=== PATIENT | female | born 1990 | race Caucasian/White ===

== ENCOUNTER 2021-03-23 18:02 | Emergency (ER) | payer OTHER | END 2021-03-23 19:37 | disposition left against medical advice (07) | LOC: ER1 18:02 | DX: N61.1 Abscess of the breast and nipple (principal); Z86.19 Personal history of other infectious and parasitic diseases; F17.210 Nicotine dependence, cigarettes, uncomplicated; Z79.899 Other long term (current) drug therapy | CPT/HCPCS: 99282; Q9967 ==

== ENCOUNTER 2021-03-25 00:44 | Inpatient (IN) | payer OTHER ==
[~2021-03-25] VITALS: Ht 154.9 cm; Wt 45.4 kg
[2021-03-25 02:43] LABS: RED BLOOD COUNT 3.99 M/UL (4.00-5.10); WHITE BLOOD COUNT 8.2 K/UL (4.5-11.0)
[2021-03-25 03:03] LABS: BUN/CREATININE RATIO 25 (0-10)
[2021-03-26 07:40] LABS: HEMOGLOBIN 10.7 gm/dl (12.3-15.3); RED BLOOD COUNT 3.77 M/UL (4.00-5.10)
[2021-03-26 07:41] LABS: WHITE BLOOD COUNT 11.3 K/UL (4.5-11.0)
[2021-03-26 08:08] LABS: BUN/CREATININE RATIO 34 (0-10)
--- NOTE | 2021-03-26 16:50 | NUR ---
1040 WAS INFORMED BY CRISTIAN HARRIS, THAT BOYFRIEND OF VISITOR WAS SITTING AT TABLE WITH TOURNIQUET, AND ALUMINUM FOIL. JACOB RUBIN CONTACTED VAN LOADER ROMAN AND MADE HER AWARE OF THIS. 1048 VAN LOADER ROMAN, ALONG WITH CLINICAL DRY MILL OPERATOR UZMA, AND TWO MEMBERS OF [employer] ENTERED THE ROOM TO LOOK FOR ANY DRUG RELATED ITEMS AND SECURITY ASKED THE BOYFRIEND OF PATIENT TO LEAVE. BOYFRIEND GATHERED BELONGINGS AND WALKED OFF FLOOR. PATIENT THEN BECAME UPSET. JACOB JOEL, SPOKE WITH PATIENT AND PATIENT BECAME LESS UPSET. 1120 ENTERED PATIENT'S ROOM AND PATIENT REQUESTED TO LEAVE "AMA" PATIENT VERBALIZED THAT SHE COULD NOT STAY HERE AFTER HER BOYFRIEND HAD BEEN ASKED TO LEAVE. DISCUSSED WITH PATIENT RISKS AND DANGERS OF LEAVING AMA. PATIENT VERBALIZED UNDERSTANDING, BUT STILL REQUESTED TO LEAVE AMA. PATIENT AGREED TO SIGN AMA PAPER. PATIENT IV REMOVED, PATIENT SIGNED AMA PAPER, THEN PATIENT WALKED OFF FLOOR. CRISTIAN SALINAS ENTERED ROOM AND FOUND RESIDUE ON COUGH AND TABLE. BEATRIZ OWENS MADE AWARE, HS THEN BLOCKED ROOM. AT APPROXIMATELY 1155 [place] [employer] OFFICER ARRIVED TO SEARCH ROOM. THE OFFICER VERBALIZED THAT NO SPECIAL CLEANING OF THE ROOM WOULD BE NECESSARY. VAN LOADER MADE AWARE.
[2021-03-27 21:09] LABS: CHLAMYDIA TRACHOMATIS, NAA Positive (Negative); NEISSERIA GONORRHOEAE, NAA Negative (Negative)
== END 2021-03-26 11:32 | disposition left against medical advice (07) | DRG 585 ==
LOC: ER1 00:44 → CDU 02:37 → MED SURG 4 02:37
PROVIDERS: Internal Medicine; Physician Assistant; Surgery; ADMIT Internal Medicine
PROC: 0H9T0ZZ Drainage of Right Breast, Open Approach (ICD-10-PCS; principal; 2021-03-25 13:15)
DX: N61.1 Abscess of the breast and nipple (principal); F19.10 Other psychoactive substance abuse, uncomplicated; B19.20 Unspecified viral hepatitis C without hepatic coma; F17.210 Nicotine dependence, cigarettes, uncomplicated; Z91.14 Patient's other noncompliance with medication regimen; Z98.51 Tubal ligation status; Z80.3 Family history of malignant neoplasm of breast; Z86.14 Personal history of Methicillin resistant Staphylococcus aureus infection
CPT/HCPCS: 36415; 80053; 80307; 81001; 83605; 84703; 85025; 86140; 87040; 87070; 87077; 87186; 87205; 87210; 99282; 99285; J1100; J1885; J2001; J2250; J2405; J2543; J2704; J3010; J3370; J7030; J7070; J7120; Q9967; U0002